=== PATIENT | female | born 1975 | race Caucasian/White ===

== ENCOUNTER → 2023-12-24 14:57 | Outpatient (REF) | payer OTHER, SELFPAY | LOC: HWWDC 14:57 | PROVIDERS: ATTENDING PHYSICIAN Physician Assistant Medical | DX: Z12.31 Encounter for screening mammogram for malignant neoplasm of breast (principal) | CPT/HCPCS: 77063; 77067 ==

== ENCOUNTER → 2024-02-24 14:39 | Outpatient (REF) | payer OTHER, SELFPAY | LOC: HWRAD 14:39 | PROVIDERS: ATTENDING PHYSICIAN Physician Assistant Medical | DX: M54.50 Low back pain, unspecified (principal) | CPT/HCPCS: 72110 ==

== ENCOUNTER → 2025-02-11 13:08 | Outpatient (REF) | payer OTHER, SELFPAY | LOC: HWWDC 13:08 | PROVIDERS: ATTENDING PHYSICIAN Nurse Practitioner Family; FAMILY PHYSICIAN Physician Assistant Medical | DX: Z13.21 Encounter for screening for nutritional disorder (principal) | CPT/HCPCS: 77063; 77067 ==